=== PATIENT | female | born 1990 | race African-American/Black ===

== ENCOUNTER 2017-07-02 08:42 | Emergency (ER) | payer OTHER ==
[~2017-07-02] VITALS: Ht 157.5 cm; Wt 75.0 kg
[2017-07-02 08:42] VITALS: BP 131/76; PULSE 60; RESP 16; TEMP 98.7; O2SAT 99
--- NOTE | 2017-07-02 10:20 | PD ---
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 Patient has a history of HSV but says she rarely gets an outbreak. She otherwise has not been sexually active in a year. She's never had discomfort like this before. PFSH Past Medical History Asthma: Yes Influenza Vaccination: No ?: Not Past Surgical History Appendectomy: Yes Social History Alcohol Use: No Tobacco Use: Yes Substance Use: No Allergies-Medications (Allergen,Severity, Reaction): Coded Allergies: shellfish derived (Verified Allergy, Intermediate, hives, 07/02/17) Reported Meds & Prescriptions Reported Meds & Active Scripts Active No Active Prescriptions or Reported Medications Review of Systems Except as stated in HPI: all other systems reviewed are Neg Physical Exam Narrative GENERAL:Well appearing, no acute distress SKIN: Focused skin assessment warm and dry. HEAD: Atraumatic. Normocephalic. EYES: Pupils equal and round. No injection or drainage. ENT: Moist mucous membranes NECK: Trachea midline. CARDIOVASCULAR: Regular rate and rhythm. No murmur appreciated. RESPIRATORY: Clear to auscultation. Breath sounds equal bilaterally. GASTROINTESTINAL: Abdomen soft, mildly tender to palpation in the right lower abdomen with no rebound or guarding. : Mild tenderness over the right adnexa with no cervical motion tenderness and no vaginal discharge. MUSCULOSKELETAL: No obvious deformities. NEUROLOGICAL: Awake and alert. No obvious cranial nerve deficits. Moving all extremities. PSYCHIATRIC: Appropriate mood and affect; insight and judgment normal. Data Data Last Documented VS Vital Signs Date Time Temp Pulse Resp B/P (MAP) Pulse Ox O2 Delivery O2 Flow Rate FiO2 07/02/17 08:42 98.7 60 16 131/76 (94) 99 Room Air Orders Orders Wet Prep Profile (07/02/17 10:17) Gc And Chlamydia Pcr (07/02/17 10:17) Ed Urine Pregnancytest Poc (07/02/17 10:17) Labs Laboratory Tests Test 07/02/17 10:30 Clue Cells (Wet Prep) NONE SEEN Vaginal Trichomonas (Wet Prep) NONE SEEN Vaginal Yeast (Wet Prep) NONE SEEN MDM Medical Decision Making Medical Screen Exam Complete: Yes Emergency Medical Condition: Yes Interpretation(s) Afebrile, no tachycardia, normotensive Wet prep is negative Differential Diagnosis Ovarian cyst rupture, herpes outbreak, vaginosis, gonorrhea, chlamydia Narrative Course This is a 27-year-old female who presents to the emergency department with pelvic and vaginal pain. On exam she has some scant discharge. She's not been sexually active in a year. She is tender in the right adnexa. She appears pretty comfortable. Plan care is negative for . She has had no vomiting or fever to suggest appendicitis and I don't think she has ovarian torsion based on her exam. I think this reflects a ruptured ovarian cyst. I think her symptoms will improve in 24-48 hours. She was advised to return to the emergency department if her symptoms worsen. Diagnosis Primary Impression: Pelvic pain in female Patient Instructions: General Instructions Additional Instructions: If you develop severe or worsening abdominal pain, fever>100.4, persistent vomiting or inability to eat or drink return to the emergency department immediately. Follow up with your primary care physician in 1-2 days for a check-up. Med/Other Pt SpecificInfo: Prescription(s) given Scripts Naproxen (Naproxen) 500 Mg Tab 500 MG PO BID Y for PAIN SCALE 4 TO 10, #20 TAB 0 Refills Prov: Julissa Munguia MD 07/02/17 Disposition: 01 DISCHARGE HOME Condition: Stable Julissa Munguia MD Jul 02, 2017 10:20
[2017-07-02] MEDS ORDERED: NAPR500T2 PO (12:16)
== END 2017-07-02 12:34 | disposition home or self-care (01) ==
LOC: NEPD 08:42
DX: R10.2 Pelvic and perineal pain (principal); J45.909 Unspecified asthma, uncomplicated; Z72.0 Tobacco use
CPT/HCPCS: 84703; 87210; 87491; 87591; 99283

== ENCOUNTER 2017-07-23 15:55 | Emergency (ER) | payer OTHER ==
[~2017-07-23] VITALS: Ht 157.5 cm; Wt 55.0 kg
[~2017-07-23 15:55] MED LIST: NAPR500T2 PO
[2017-07-23 15:57] VITALS: BP 128/79; PULSE 86; RESP 12; TEMP 97.8; O2SAT 100
[2017-07-23 16:44] LABS: AUTOMATED NEUTROPHIL # 3.3 TH/MM3 (1.8-7.7); BASOPHIL # 0.1 TH/MM3 (0-0.2); BASOPHIL % 0.8 % (0.0-2.0); EOSINOPHIL # 0.2 TH/MM3 (0-0.4); EOSINOPHIL % 3.1 % (0.0-4.0); HEMATOCRIT 38.8 % (35.0-46.0); HEMOGLOBIN 14.1 GM/DL (11.6-15.3); LYMPH % 40.3 % (9.0-44.0); LYMPHOCYTE # 2.9 TH/MM3 (1.0-4.8); MEAN CELL VOLUME 89.8 FL (80.0-100.0); MEAN CORPUSCULAR HEMOGLOBIN 32.6 PG (27.0-34.0); MEAN PLATELET VOLUME 9.1 FL (7.0-11.0); MONO % 9.5 % (0.0-8.0); MONOCYTE # 0.7 TH/MM3 (0-0.9); NEUT % 46.3 % (16.0-70.0); PLATELET COUNT 202 TH/MM3 (150-450); RED BLOOD COUNT 4.32 MIL/MM3 (4.00-5.30); WHITE BLOOD COUNT 7.2 TH/MM3 (4.0-11.0)
[2017-07-23 16:57] LABS: MEAN CORPUSCULAR HGB CONC 36.3 % (32.0-36.0)
[2017-07-23 17:08] LABS: ALBUMIN 3.6 GM/DL (3.4-5.0); AST (GOT) 11 U/L (15-37); BICARBONATE 26.2 MEQ/L (21.0-32.0); BLOOD UREA NITROGEN 8 MG/DL (7-18); CALCIUM 8.8 MG/DL (8.5-10.1); CHLORIDE 105 MEQ/L (98-107); CREATININE 0.62 MG/DL (0.50-1.00); GLOMERULAR FILTRATION RATE 142 ML/MIN (>89); GLUCOSE,RANDOM 80 MG/DL (74-106); SODIUM (NA) 140 MEQ/L (136-145)
[2017-07-23 17:11] LABS: ALKALINE PHOSPHATASE 61 U/L (45-117); ALT (GPT) 16 U/L (10-53); TOTAL BILIRUBIN ADULT 0.3 MG/DL (0.2-1.0); TOTAL PROTEIN 7.3 GM/DL (6.4-8.2)
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
[2017-07-23] MEDS ORDERED: IBUPROFEN 600 MG TAB PO ONE (18:15)
[2017-07-23 18:16] LABS: BILIRUBIN, URINE NEG (NEG); BLOOD, URINE SMALL (NEG); GLUCOSE,URINE NEG (NEG); KETONE, URINE NEG (NEG); MUCUS URINE MOD /lpf (OCC); NITRITE,URINE NEG (NEG); SQUAMOUS EPITHELIAL CELL URINE 1 /hpf (0-5); URINE COLOR YELLOW (YELLW/STRAW); URINE LEUKOCYTE ESTERASE TRACE (NEG)
[2017-07-23] MEDS ORDERED: metroNIDAZOLE 500 MG TAB PO ONE (18:45)
[2017-07-23] MEDS ORDERED: LIDOCAINE HCL 1% 50 ML VIAL XX ONE (18:45)
[2017-07-23] MEDS ORDERED: AZITHROMYCIN 250 MG TAB PO ONE (18:45)
[2017-07-23] MEDS ORDERED: cefTRIAXone 250 MG VIAL IM ONE (18:45)
[2017-07-23] MEDS ORDERED: LIDOCAINE HCL 1% PF 30 ML VIAL ONE (19:02)
== END 2017-07-23 19:48 | disposition home or self-care (01) ==
LOC: NEPD 15:55
DX: A59.01 Trichomonal vulvovaginitis (principal); A64 Unspecified sexually transmitted disease; J45.909 Unspecified asthma, uncomplicated; Z72.0 Tobacco use
CPT/HCPCS: 80053; 81001; 83690; 84703; 85025; 87210; 87491; 87591; 96372; 99283; J0696

== ENCOUNTER 2017-08-09 21:24 | Emergency (ER) | payer OTHER ==
[~2017-08-09] VITALS: Ht 160 cm; Wt 81.5 kg
[2017-08-09 21:28] VITALS: BP 134/74; PULSE 70; RESP 18; TEMP 98.6; O2SAT 99
[2017-08-09 21:59] LABS: AUTOMATED NEUTROPHIL # 5.9 TH/MM3 (1.8-7.7); BASOPHIL # 0.1 TH/MM3 (0-0.2); BASOPHIL % 0.5 % (0.0-2.0); EOSINOPHIL # 0.4 TH/MM3 (0-0.4); EOSINOPHIL % 3.7 % (0.0-4.0); HEMATOCRIT 40.1 % (35.0-46.0); HEMOGLOBIN 13.8 GM/DL (11.6-15.3); LYMPH % 33.2 % (9.0-44.0); LYMPHOCYTE # 3.5 TH/MM3 (1.0-4.8); MEAN CELL VOLUME 91.1 FL (80.0-100.0); MEAN CORPUSCULAR HEMOGLOBIN 31.3 PG (27.0-34.0); MEAN CORPUSCULAR HGB CONC 34.4 % (32.0-36.0); MEAN PLATELET VOLUME 9.3 FL (7.0-11.0); MONOCYTE # 0.7 TH/MM3 (0-0.9); NEUT % 55.6 % (16.0-70.0); PLATELET COUNT 202 TH/MM3 (150-450); RED CELL DISTRIBUTION WIDTH 13.3 % (11.6-17.2); WHITE BLOOD COUNT 10.6 TH/MM3 (4.0-11.0)
[2017-08-09 22:02] LABS: BACTERIA, URINE RARE /hpf; BILIRUBIN, URINE NEG (NEG); BLOOD, URINE NEG (NEG); GLUCOSE,URINE NEG (NEG); KETONE, URINE NEG (NEG); MUCUS URINE FEW /lpf (OCC); NITRITE,URINE NEG (NEG); SQUAMOUS EPITHELIAL CELL URINE 3 /hpf (0-5); URINE COLOR YELLOW (YELLW/STRAW); URINE LEUKOCYTE ESTERASE NEG (NEG)
[2017-08-09 22:12] LABS: ALBUMIN 3.7 GM/DL (3.4-5.0); ALT (GPT) 16 U/L (10-53); AST (GOT) 12 U/L (15-37); BICARBONATE 25.5 MEQ/L (21.0-32.0); BLOOD UREA NITROGEN 8 MG/DL (7-18); CALCIUM 9.4 MG/DL (8.5-10.1); CHLORIDE 105 MEQ/L (98-107); GLOMERULAR FILTRATION RATE 147 ML/MIN (>89); GLUCOSE,RANDOM 96 MG/DL (74-106); SODIUM (NA) 140 MEQ/L (136-145)
[2017-08-09 22:15] LABS: ALKALINE PHOSPHATASE 63 U/L (45-117); TOTAL BILIRUBIN ADULT 0.2 MG/DL (0.2-1.0); TOTAL PROTEIN 7.5 GM/DL (6.4-8.2)
[2017-08-09] MEDS ORDERED: SODIUM CHLOR 0.9% 1000 ML INJ 1,000 ML IV SCH (22:34)
[2017-08-09] MEDS ORDERED: SODIUM CHLORIDE 0.9% FLUSH 10 ML FLUSH IV FLUSH PRN (22:45)
[2017-08-09] MEDS ORDERED: ONDANSETRON HCL 4 MG/2 ML VIAL IVP ONE (22:45)
[2017-08-09] MEDS ORDERED: ALUMINUM/MAGNESIUM/SIMETH 30 ML CUP PO ONE (22:45)
[2017-08-09] MEDS ORDERED: MORPHINE SULFATE 4 MG/ML INJ IV PUSH ONE (22:45)
[2017-08-09] MEDS ORDERED: LIDOCAINE VISCOUS 2% SOLN 15 ML UDC PO ONE (22:45)
[2017-08-09] MEDS ORDERED: FAMOTIDINE 20 MG/2 ML VIAL IV PUSH ONE (22:45)
[2017-08-09] MEDS ORDERED: IOHEXOL 350 MG/ML 10 ML VIAL (for RAD DIAG) IVCONTRAST ONE (23:27)
--- NOTE | 2017-08-09 23:37 | RADRPT ---
EXAM DATE/TIME: 08/09/2017 23:22 [facility] COMPARISON: No previous studies available for comparison. INDICATIONS : Abdominal pain. IV CONTRAST: 93 cc Omnipaque 350 (iohexol) IV ORAL CONTRAST: No oral contrast ingested. RADIATION DOSE: 8.67 CTDIvol (mGy) MEDICAL HISTORY : Cardiovascular disease. Heart murmur, Asthma SURGICAL HISTORY : Appendectomy. ENCOUNTER: Initial ACUITY: 1 day PAIN SCALE: 7/10 LOCATION: abdomen TECHNIQUE: Volumetric scanning of the abdomen and pelvis was performed. Using automated exposure control and ad justment of the mA and/or kV according to patient size, radiation dose was kept as low as reasonably achievable to obtain optimal diagnostic quality images. DICOM format image data is available electro nically for review and comparison. FINDINGS: LOWER LUNGS: The visualized lower lungs are clear. LIVER: Homogeneous density without lesion. There is no dilation of the biliary tree. No calcified gallston es. SPLEEN: Normal size without lesion. PANCREAS: Within normal limits. KIDNEYS: Normal in size and shape. There is no mass, stone or hydronephrosis. ADRENAL GLANDS: Within normal limits. VASCULAR: There is no aortic aneurysm. BOWEL/MESENTERY: No dilated loops of small or large bowel. ABDOMINAL WALL: Within normal limits. RETROPERITONEUM: There is no lymphadenopathy. BLADDER: No wall thickening or mass. REPRODUCTIVE: Anteverted uterus. 3 cm round low-density area in the left adnexa probably representing ovarian cyst . No evidence of free fluid. INGUINAL: There is no lymphadenopathy or hernia. MUSCULOSKELETAL: Within normal limits for patient age. CONCLUSION: 1. Probable left ovarian cyst. 2. Otherwise negative CT abdomen/pelvis with contrast. Phill Frazier MD on August 09, 2017 at 23:33 Board Certified Radiologist. This report was verified electronically.
--- NOTE | 2017-08-09 23:47 | PD ---
HPI Chief Complaint: Abdominal Pain Time Seen by Provider: 22:27 Travel History International Travel<30 days: No Contact w/Intl Traveler<30days: No Traveled to known affect area: No History of Present Illness HPI Patient is a 27-year-old female comes in complaining of abdominal pain. She says the pain is in her lower abdomen as well as her upper abdomen. She says it has been going on for the past 3 days. She has tried ibuprofen without relief of her symptoms. She says she feels like she is bloated. She says her last menstrual period was 2 weeks ago. She says she has felt nauseous, not had any vomiting. She denies any urinary symptoms. She denies any vaginal discharge. She says her last bowel movement was this morning and it was normal. Severity is mild to moderate. PFSH Past Medical History Asthma: Yes Cardiovascular Problems: Yes (murmor) ?: Unknown Past Surgical History Appendectomy: Yes Social History Alcohol Use: Yes Tobacco Use: Yes Substance Use: Yes (MARIJUANA) Allergies-Medications (Allergen,Severity, Reaction): Coded Allergies: shellfish derived (Verified Allergy, Intermediate, hives, 07/02/17) Reported Meds & Prescriptions Reported Meds & Active Scripts Active Review of Systems Except as stated in HPI: all other systems reviewed are Neg General / Constitutional: No: Fever, Chills Eyes: No: Blurred Vision HENT: No: Headaches, Lightheadedness Cardiovascular: No: Chest Pain or Discomfort Respiratory: No: Shortness of Breath Gastrointestinal: Positive: Nausea, Abdominal Pain, No: Vomiting, Diarrhea Genitourinary: No: Dysuria, Discharge Skin: No Rash, No Change in Pigmentation Neurologic: No: Weakness, Dizziness Physical Exam Narrative GENERAL: Awake and alert, in no acute distress. SKIN: Focused skin assessment warm/dry. HEAD: Atraumatic. Normocephalic. EYES: Pupils equal and round. No scleral icterus. EOMI. ENT: Mucous membranes pink and moist. NECK: Trachea midline. No JVD. CARDIOVASCULAR: Regular rate and rhythm. No murmur appreciated. RESPIRATORY: No accessory muscle use. Clear to auscultation. Breath sounds equal bilaterally. GASTROINTESTINAL: Abdomen soft, nondistended. Mild tenderness to palpation of the RLQ and epigastric area. MUSCULOSKELETAL: No obvious deformities. No clubbing. No cyanosis. No edema. NEUROLOGICAL: Awake and alert. No obvious cranial nerve deficits. Motor grossly within normal limits. Normal speech. PSYCHIATRIC: Appropriate mood and affect; insight and judgment normal. Data Data Last Documented VS Vital Signs Date Time Temp Pulse Resp B/P (MAP) Pulse Ox O2 Delivery O2 Flow Rate FiO2 08/09/17 21:28 98.6 70 18 134/74 (94) 99 Orders Orders Complete Blood Count With Diff (08/09/17 21:31) Comprehensive Metabolic Panel (08/09/17 21:31) Urinalysis - C+S If Indicated (08/09/17 21:31) Ed Urine Pregnancytest Poc (08/09/17 21:31) Iv Access Insert/Monitor (08/09/17 21:31) Oxygen Administration (08/09/17 21:31) Oximetry (08/09/17 21:31) Lipase (08/09/17 21:31) Ct Abd/Pel W Iv Contrast(Rout) (08/09/17 22:34) Ecg Monitoring (08/09/17 22:34) Morphine Inj (Morphine Inj) (08/09/17 22:45) Ondansetron Inj (Zofran Inj) (08/09/17 22:45) Sodium Chlor 0.9% 1000 Ml Inj (Ns 1000 M (08/09/17 22:34) Sodium Chloride 0.9% Flush (Ns Flush) (08/09/17 22:45) Famotidine Inj (Pepcid Inj) (08/09/17 22:45) Al-Mag Hy-Si 40-40-4 Mg/Ml Liq (Mag-Al P (08/09/17 22:45) Lidocaine 2% Viscous (Xylocaine 2% Visco (08/09/17 22:45) Iohexol 350 Inj (Omnipaque 350 Inj) (08/09/17 23:27) Labs Laboratory Tests Test 08/09/17 21:44 White Blood Count 10.6 TH/MM3 Red Blood Count 4.40 MIL/MM3 Hemoglobin 13.8 GM/DL Hematocrit 40.1 % Mean Corpuscular Volume 91.1 FL Mean Corpuscular Hemoglobin 31.3 PG Mean Corpuscular Hemoglobin Concent 34.4 % Red Cell Distribution Width 13.3 % Platelet Count 202 TH/MM3 Mean Platelet Volume 9.3 FL Neutrophils (%) (Auto) 55.6 % Lymphocytes (%) (Auto) 33.2 % Monocytes (%) (Auto) 7.0 % Eosinophils (%) (Auto) 3.7 % Basophils (%) (Auto) 0.5 % Neutrophils # (Auto) 5.9 TH/MM3 Lymphocytes # (Auto) 3.5 TH/MM3 Monocytes # (Auto) 0.7 TH/MM3 Eosinophils # (Auto) 0.4 TH/MM3 Basophils # (Auto) 0.1 TH/MM3 CBC Comment DIFF FINAL Differential Comment Urine Color YELLOW Urine Turbidity CLEAR Urine pH 6.0 Urine Specific [place] 1.030 Urine Protein TRACE mg/dL Urine Glucose (UA) NEG mg/dL Urine Ketones NEG mg/dL Urine Occult Blood NEG Urine Nitrite NEG Urine Bilirubin NEG Urine Urobilinogen 2.0 MG/DL Urine Leukocyte Esterase NEG Urine RBC 2 /hpf Urine WBC 1 /hpf Urine Squamous Epithelial Cells 3 /hpf Urine Bacteria RARE /hpf Urine Mucus FEW /lpf Microscopic Urinalysis Comment CULT NOT INDICATED Blood Urea Nitrogen 8 MG/DL Creatinine 0.60 MG/DL Random Glucose 96 MG/DL Total Protein 7.5 GM/DL Albumin 3.7 GM/DL Calcium Level 9.4 MG/DL Alkaline Phosphatase 63 U/L Aspartate Amino Transf (AST/SGOT) 12 U/L Alanine Aminotransferase (ALT/SGPT) 16 U/L Total Bilirubin 0.2 MG/DL Sodium Level 140 MEQ/L Potassium Level 3.8 MEQ/L Chloride Level 105 MEQ/L Carbon Dioxide Level 25.5 MEQ/L Anion Gap 10 MEQ/L Estimat Glomerular Filtration Rate 147 ML/MIN Lipase 143 U/L [facility] Medical Decision Making Medical Screen Exam Complete: Yes Emergency Medical Condition: Yes Medical Record Reviewed: Yes Differential Diagnosis ovarian cyst vs gastritis vs cholecystitis vs cholelithiasis vs GERD Narrative Course Patient is a 27-year-old female comes in complaining of abdominal pain. Exam is mild tenderness to the right lower quadrant and epigastric area. IV established, labs sent. Labs show no acute abnormalities. CT abdomen and pelvis performed shows a right ovarian cyst. Patient given pain medicine, IV fluids, GI cocktail. She reports feeling better. She is informed of the results. She is advised to follow-up with gynecology. Advised to take Tylenol or ibuprofen as needed for pain. Advised return to the ED as needed for any worsening symptoms. Diagnosis Primary Impression: Ovarian cyst Qualified Codes: N83.201 - Unspecified ovarian cyst, right side Patient Instructions: General Instructions, Ovarian Cyst (ED) Additional Instructions: Follow up with gynecology. Take Tylenol or Ibuprofen as needed for pain. Return to the ED as needed for any worsening symptoms. Disposition: 01 DISCHARGE HOME Condition: Stable Christina Henderson MD Aug 09, 2017 23:47
[2017-08-10 00:04] VITALS: RESP 16; O2SAT 98
== END 2017-08-10 00:26 | disposition home or self-care (01) ==
LOC: NEPD 21:24
DX: N83.201 Unspecified ovarian cyst, right side (principal); R11.0 Nausea; J45.909 Unspecified asthma, uncomplicated; Z72.0 Tobacco use
CPT/HCPCS: 74177; 80053; 81001; 83690; 84703; 85025; 96374; 96375; 99284; J2270; J2405; J7030; Q9967